=== PATIENT | female | born 1965 | race Caucasian/White ===

== ENCOUNTER 2023-11-03 07:26 | Day surgery (SDC) | payer MEDICAID ==
[~2023-11-03] VITALS: Ht 160 cm; Wt 81.6 kg
[2023-11-03] MEDS ORDERED: MEPERIDINE 100 MG INJ. 100 MG/ML VIAL ONE (07:37)
[2023-11-03] MEDS ORDERED: MIDAZOLAM HCL 5 MG/5 ML VIAL ONE (07:37)
[2023-11-03] MEDS ORDERED: BENZOCAINE 20% 0.5mL UD SPRAY MM ONE (07:43)
[2023-11-03 08:28] VITALS: O2SAT 97
[2023-11-03 14:29] VITALS: BP_SYST 106; PULSE 55; RESP 11
== END 2023-11-03 10:05 | disposition home or self-care (01) ==
LOC: SDS 07:26 → SMU 07:28 → SDS 10:05
PROVIDERS: ATTEND Student in an Organized Health Care Education/Training Program
DX: Z12.11 Encounter for screening for malignant neoplasm of colon (principal); K63.5 Polyp of colon; K31.7 Polyp of stomach and duodenum; K29.70 Gastritis, unspecified, without bleeding; K57.30 Diverticulosis of large intestine without perforation or abscess without bleeding; K64.8 Other hemorrhoids; R10.11 Right upper quadrant pain; R19.4 Change in bowel habit; E78.5 Hyperlipidemia, unspecified; Z79.899 Other long term (current) drug therapy
CPT/HCPCS: 45385; 43239; 99152; 88305; 88312; 88313; 99153; G0378; J2250; J2175